=== PATIENT | male | born 1985 | race Caucasian/White ===

== ENCOUNTER 2022-06-08 16:47 | Emergency (ER) | payer OTHER ==
[~2022-06-08] VITALS: Ht 175.3 cm; Wt 68.2 kg
[2022-06-08] MEDS ORDERED: NS 1,000 ML IV ONE (19:55)
[2022-06-08] MEDS ORDERED: ACETAMINOPHEN 500 MG TAB PO ONE (19:55)
[2022-06-08] MEDS ORDERED: BENZONATATE 100MG CAPSULE PO ONE (20:05)
[2022-06-08 20:17] LABS: BASO # 0.1 10^3/uL (0.0-0.2); BASO % 0.4 % (0.0-1.0); EOS # 0.1 10^3/uL (0.0-0.5); EOS % 0.7 % (0.0-3.0); HEMATOCRIT 48.8 % (42.0-52.0); HEMOGLOBIN 16.4 g/dl (13.5-17.5); LYMPH # 1.5 10^3/uL (1.5-5.0); LYMPH % 9.9 % (24.0-44.0); MEAN CORPUSCULAR HEMOGLOBIN 29.6 pg (27.0-33.0); MEAN CORPUSCULAR HGB CONC 33.6 g/dl (32.0-36.5); MEAN CORPUSCULAR VOLUME 88.1 fl (80.0-96.0); MONO # 1.1 10^3/uL (0.0-0.8); MONO % 7.4 % (2.0-8.0); NEUTROPHILS # 12.2 10^3/uL (1.5-8.5); NEUTROPHILS % 81.1 % (36.0-66.0); PLATELET COUNT, AUTOMATED 271 10^3/uL (150-450); RED BLOOD COUNT 5.54 10^6/uL (4.30-6.10); WHITE BLOOD COUNT 15.1 10^3/uL (4.0-10.0)
[2022-06-08 20:42] LABS: ALBUMIN 4.3 GM/DL (3.2-5.2); ALT/SGPT 20 U/L (12-78); BILIRUBIN,TOTAL 0.5 MG/DL (0.2-1.0); BLOOD UREA NITROGEN 12 MG/DL (7-18); CALCIUM LEVEL 9.2 MG/DL (8.5-10.1); CARBON DIOXIDE LEVEL 24 MEQ/L (21-32); CHLORIDE LEVEL 106 MEQ/L (98-107); CK-MB VALUE MASS < 1.0 NG/ML (<3.6); CPK CREATINE PHOSPHOKINASE 100 U/L (39-308); GLOMERULAR FILTRATION RATE > 60.0 (>60); GLUCOSE, FASTING 102 MG/DL (70-100); SODIUM LEVEL 136 MEQ/L (136-145); TOTAL PROTEIN 7.7 GM/DL (6.4-8.2)
[2022-06-08] MEDS ORDERED: ISOVUE-370 76% 100ML VIAL As Ordered ONE (20:55)
[2022-06-08] MEDS ORDERED: PROAAER10 INH (21:44)
[2022-06-08] MEDS ORDERED: BENZ200C70 PO (21:44)
[2022-06-08 21:56] VITALS: BP 144/86
== END 2022-06-08 21:57 | disposition home or self-care (01) ==
LOC: M ED 16:47
DX: J06.9 Acute upper respiratory infection, unspecified (principal); B34.9 Viral infection, unspecified; Z20.822 Contact with and (suspected) exposure to COVID-19; F17.200 Nicotine dependence, unspecified, uncomplicated
CPT/HCPCS: 71045; 71275; 80053; 82550; 82553; 84484; 85025; 85379; 87486; 87581; 87633; 87798; 93005; 96360; 96361; 99284; Q9967

== ENCOUNTER 2022-11-01 11:18 | Day surgery (SDC) | payer OTHER ==
[~2022-11-01] VITALS: Ht 175.3 cm; Wt 68.0 kg
[~2022-11-01 11:18] MED LIST: BENZ200C70 PO; PROAAER10 INH
[2022-11-01] MEDS ORDERED: LR 1,000 ML IV SCH ×2 (11:50→14:20)
[2022-11-01] MEDS ORDERED: MIDAZOLAM INJ 2MG/2ML VIAL As Ordered ONE (12:41)
[2022-11-01] MEDS ORDERED: ONDANSETRON 4MG 2ML VIAL As Ordered ONE (12:41)
[2022-11-01] MEDS ORDERED: SUGAMMADEX SODIUM 500 MG/5 ML VIAL (BRIDION) As Ordered ONE (12:41)
[2022-11-01] MEDS ORDERED: fentaNYL 100 MCG/2 ML INJECTION As Ordered ONE ×2 (12:41→14:11)
[2022-11-01] MEDS ORDERED: ROCURONIUM BROMIDE 50MG/5ML VIAL As Ordered ONE (12:41)
[2022-11-01] MEDS ORDERED: propofoL 200 MG/20 ML VIAL As Ordered ONE (12:41)
[2022-11-01] MEDS ORDERED: LIDOCAINE 2% 100MG/5ML SDV (FOR ANES.) As Ordered ONE (12:41)
[2022-11-01] MEDS ORDERED: OXYMETAZOLINE 0.05% NASAL SPRAY (AFRIN) As Ordered ONE (12:55)
[2022-11-01] MEDS ORDERED: COCAINE 4% 4ML NASAL SOLUTION BTL As Ordered ONE (12:55)
[2022-11-01] MEDS ORDERED: LIDOCAINE W/EPINEPHRINE 1% 20ML VIAL As Ordered ONE (12:56)
[2022-11-01] MEDS ORDERED: GLYCOPYRROLATE INJ 0.2 MG/ML 2 ML VIAL As Ordered ONE (13:31)
[2022-11-01] MEDS ORDERED: ACETAMINOPHEN 1000MG 100ML IV BAG As Ordered ONE (13:38)
[2022-11-01] MEDS ORDERED: MEPERIDINE INJ 25 MG/ML VIAL IV PRN (14:20)
[2022-11-01] MEDS ORDERED: fentaNYL 100 MCG/2 ML INJECTION IV PRN (14:20)
[2022-11-01] MEDS ORDERED: ONDANSETRON 4MG 2ML VIAL IV PRN ×2 (14:20→15:00)
[2022-11-01] MEDS ORDERED: LACRILUBE (AKWA TEARS) OPHTH OINT 3.5GM As Ordered ONE (14:21)
[2022-11-01] MEDS: NORCO, ANEXSIA 5/325MG TABLET (HYDROcodone/ACETAMINOPHEN) PO PRN ×2 (14:50→15:26)
[2022-11-01] MEDS: HYDROMORPHONE HCL 0.5 MG/ 0.5 ML SYRINGE IV PRN ×2 (14:51→14:56)
[2022-11-01] MEDS ORDERED: NORCO, ANEXSIA 5/325MG TABLET (HYDROcodone/ACETAMINOPHEN) PO PRN (15:00)
[2022-11-01] MEDS ORDERED: MORPHINE 10 MG/ML 1ML VIAL IV PRN (15:00)
[2022-11-01 15:50] VITALS: BP 135/84
== END 2022-11-01 16:00 | disposition home or self-care (01) ==
LOC: M SDC 11:18
PROVIDERS: ATTEND Otolaryngology
DX: J34.2 Deviated nasal septum (principal); J34.3 Hypertrophy of nasal turbinates; K21.9 Gastro-esophageal reflux disease without esophagitis; F41.9 Anxiety disorder, unspecified; F17.210 Nicotine dependence, cigarettes, uncomplicated
CPT/HCPCS: 30140; 30520; C9046; J0131; J1100; J1170; J2250; J2405; J3010

== ENCOUNTER → 2023-01-18 | Outpatient (CLI) | payer OTHER | LOC: M PLAIMG 08:27 | DX: M25.552 Pain in left hip (principal); Z97.8 Presence of other specified devices ==

== ENCOUNTER → 2023-11-25 | Outpatient (CLI) | payer OTHER | LOC: M RAD 08:56 | PROVIDERS: ATTEND Physician Assistant | DX: J98.4 Other disorders of lung (principal); N28.89 Other specified disorders of kidney and ureter ==

== ENCOUNTER → 2023-12-22 | Outpatient (CLI) | payer OTHER ==
[~2023-12-22] MED LIST changes: +ISOVUE-370 76% 100ML VIAL ONE
== END ==
LOC: M PLAIMG 09:00
PROVIDERS: ATTEND Emergency Medicine
DX: N28.1 Cyst of kidney, acquired (principal)
CPT/HCPCS: 74178; Q9967